=== PATIENT | male | born 1970 | race Two or more races ===

== ENCOUNTER 2017-03-26 10:40 | Emergency (ER) | payer SELFPAY ==
--- NOTE | 2017-03-26 11:34 | ER Document Report ---
HPI - HPI Pain Level: 4 Notes: Patient is a 46-year-old male with no significant past medical history who presents the ED complaining of rectal pain with bowel movements and feeling an enlarged lump/mass near his anus. Patient states that he has not had this for in the past. He has not noticed any bleeding or discharge from the area. Patient states that he has not been having any bowel movements for the last day because it is too painful. Patient denies any drug allergies or drug use. Denies any trauma to the area. Denies any headache, fever, chest pain, palpitations, syncope, cough, shortness of breath, wheeze, dyspnea, abdominal pain, nausea/vomiting/diarrhea, urinary retention, dysuria, hematuria, loss of control of bowel or bladder, numbness/tingling, saddle anesthesia, or rash. - ROS Notes: REVIEW OF SYSTEMS: CONSTITUTIONAL : Denies fever, chills, or sweats. Denies recent illness. EENT: Denies eye, ear, throat, or mouth pain or symptoms. Denies nasal or sinus congestion or discharge. Denies throat, tongue, or mouth swelling or difficulty swallowing. CARDIOVASCULAR: Denies chest pain. Denies palpitations or racing or irregular heart beat. Denies ankle edema. RESPIRATORY: Denies cough, cold, or chest congestion. Denies shortness of breath, difficulty breathing, or wheezing. GASTROINTESTINAL: see hpi. Denies abdominal pain or distention. Denies nausea , vomiting, or diarrhea. Denies blood in vomitus, stools, or per rectum. Denies black, tarry stools. Denies constipation. GENITOURINARY: Denies difficulty urinating, painful urination, burning, frequency, blood in urine, or discharge. MUSCULOSKELETAL: Denies back or neck pain or stiffness. Denies joint pain or swelling. SKIN: see hpi. NEUROLOGICAL: Denies confusion or altered mental status. Denies passing out or loss of consciousness. Denies dizziness or lightheadedness. Denies headache. Denies weakness or paralysis or loss of use of either side. Denies problems with gait or speech. Denies sensory loss, numbness, or tingling. Denies seizures. PSYCHIATRIC: Denies anxiety or stress. Denies depression, suicidal ideation, or homicidal ideation. ALL OTHER SYSTEMS REVIEWED AND NEGATIVE. Dictation was performed using [employer] recognition software - DERM Skin Color: Normal Past Medical History - Social History Smoking Status: Never Smoker Family History: Reviewed & Not Pertinent Renal/ Medical History: Denies: Hx Peritoneal Dialysis - Immunizations Hx Diphtheria, Pertussis, Tetanus Vaccination: Yes Vertical Provider Document - CONSTITUTIONAL Agree With Documented VS: Yes Notes: PHYSICAL EXAMINATION: GENERAL: Well-appearing, well-nourished and in no acute distress. LUNGS: Breath sounds clear to auscultation bilaterally and equal. No wheezes rales or rhonchi. HEART: Regular rate and rhythm without murmurs, rubs, gallops. ABDOMEN: Soft, nontender, nondistended abdomen. No guarding, no rebound. No masses appreciated. Normal bowel sounds present. No CVA tenderness bilaterally. Rectal: 1.5cm engorged external hemorrhoid noted. Unable to reduce. + tenderness. No obvious discoloration noted. No abscess, streaks, or discharge. Musculoskeletal: FROM to passive/active. Strength 5+/5. Extremities: No cyanosis, clubbing, or edema b/l. Peripheral pulses 2+. Capillary refill less than 3 seconds. NEUROLOGICAL: Normal speech, normal gait. Normal sensory, motor exams PSYCH: Normal mood, normal affect. SKIN: see rectal exam - INFECTION CONTROL TRAVEL OUTSIDE OF THE [place] IN LAST 30 DAYS: No - RESPIRATORY O2 Sat by Pulse Oximetry: 98 Course - Re-evaluation Re-evalutation: 03/26/17 12:05 Patient is an afebrile, well-hydrated, 46-year-old male who presents the ED with a thrombosed external hemorrhoid. Vitals are stable. PE otherwise unremarkable. Incision and drainage was performed successfully without any complications. The blood clot was evacuated from the hemorrhoid. Wound instructions reviewed and wound dressing placed. I will send him home with a prescription for viscous lidocaine and HC supp. Patient encouraged to use a stool softener, increase water intake, and increase fiber intake. Conservative measures otherwise for symptoms. Patient to call general surgery today to schedule a follow-up appointment this week. Recheck with your PCM this week as well. Return to the ED with any worsening/concerning symptoms otherwise as reviewed in discharge. Patient is in agreement. - Vital Signs Vital signs: Temp Pulse Resp BP Pulse Ox 98.5 F 62 20 146/93 H 98 03/26/17 10:43 03/26/17 10:43 03/26/17 10:43 03/26/17 10:43 03/26/17 10:43 Procedures - Incision and Drainage Rectal Time completed: 11:50 Type: Simple Anesthetic type: 1% Lidocaine mL's of anesthetic: 5 Blade size: Other - 15 I&D procedure: Shurclens applied, Sterile dressing applied Incision Method: Incision made by scalpel Amount/type of drainage: bloody moderate Notes: 03/26/17 11:50 No complications pt tolerated procedure well wound dressing placed Discharge - Discharge Clinical Impression: External hemorrhoid, thrombosed Condition: Stable Disposition: HOME, SELF-CARE Instructions: HC Hemorrhoid Cream ([facility]), Incision of Thrombosed Hemorrhoids ( [facility]) Additional Instructions: Direction per hand-outs Recheck with your PCM this week Call the general surgeon and schedule a f/u appointment Return to the ED with any worsening symptoms and/or development of fever, headache, chest pain, palpitations, syncope, shortness of breath, trouble breathing, abdominal pain, n/v/d, blood in stool/urine, loss of control of bowel /bladder, urinary retention, muscle weakness/paralysis, saddle anesthesia, numbness/tingling, or other worsening symptoms that are concerning to you. Forms: Elevated Blood Pressure Referrals: BRAULIO CASTRO MD [ACTIVE STAFF] - Follow up as needed [facility] [Provider Group] - Follow up as needed [facility] [Provider Group] - Follow up as needed
[2017-03-26] MEDS ORDERED: LIDOCAINE 2% VISCOUS SOLN 20 ML UDCUP PO ONE (11:46)
[2017-03-26 12:25] VITALS: BP 140/85
== END 2017-03-26 12:21 | disposition home or self-care (01) ==
LOC: ER 10:40
PROC: 0D9P0ZZ Drainage of Rectum, Open Approach (ICD-10-PCS; principal; 2017-03-26)
DX: K62.89 Other specified diseases of anus and rectum (principal); K64.5 Perianal venous thrombosis
CPT/HCPCS: 99283; 45005; J3490